=== PATIENT | female | born 1990 | race Caucasian/White ===

== ENCOUNTER 2018-01-16 16:11 | Emergency (ER) | payer BC ==
[2018-01-16] MEDS ORDERED: ORPHENADRINE CITRATE 60 MG/2ML IM ONE (16:39)
[2018-01-16] MEDS ORDERED: KETOROLAC TROMETHAMINE 60 MG/2 ML VIAL IM ONE (16:39)
[2018-01-16 16:45] VITALS: BP 116/76
--- NOTE | 2018-01-16 17:11 | ED Physician Documentation ---
General Adult - HISTORIAN Historian: patient - HPI Stated Complaint: low back pain Chief Complaint: Low Back Pain/ Injury Additional Information: Four days low back pain, worse on right, w/o radiation, numbness, tingling, loss bowel or bladder control. Has painful L shoulder with impingement (?) and is limited to 5# lift with L arm; to have surgery 02/09. Also has HX episodic LBP. Has been takin 800 mg ibuprofen BID, applying heat and Bio freeze but pain still severe at times. - ROS CONST: no problems - PAST HX Past History: other (bipolar ) Allergies/Adverse Reactions: Allergies Allergy/AdvReac Type Severity Reaction Status Date / Time bupropion [From Wellbutrin] Allergy Severe Rash Verified 01/16/18 16:46 duloxetine [From Cymbalta] Allergy Severe Rash Verified 01/16/18 16:46 sertraline [From Zoloft] Allergy Severe Rash Verified 01/16/18 16:46 Home Medications: Ambulatory Orders Medication Instructions Recorded Alprazolam [Xanax] 0.5 mg PO DIRECTED 01/16/18 Divalproex Sodium [Divalproex 250 mg PO D 01/16/18 Sodium ER] HYDROcodone /APAP 5/325 [Flanagan 1 tab PO DIRECTED 01/16/18 5/325] Lamotrigine [Lamictal] 25 mg PO D 01/16/18 - SOCIAL HX Smoking History: non-smoker - FAMILY HX Family History: No - VITAL SIGNS Vital Signs: Vital Signs Temp Pulse Resp BP Pulse Ox 98.3 F 93 H 18 116/76 97 01/16/18 16:12 01/16/18 16:12 01/16/18 16:12 01/16/18 16:12 01/16/18 16:12 - REVIEWED ASSESSMENTS Nursing Assessment Reviewed: Yes Vitals Reviewed: Yes Progress - Progress Progress: 1730, better after toradol and norflex. ED Results Lab/Radiology - Orders Orders: ED Orders Category Date Time Status Ketorolac Tromethamine [Toradol] Med 01/16/18 16:39 Discontinued 60 mg IM NOW ONE Orphenadrine Citrate [Norflex] Med 01/16/18 16:39 Discontinued 60 mg IM NOW ONE General Adult Physical Exam - PHYSICAL EXAM GENERAL APPEARANCE: moderate distress EENT: eye inspection normal, ENT inspection normal NECK: normal inspection, supple RESPIRATORY: no resp distress BACK: normal inspection, other (right trap spasm palpable) SKIN: warm/dry, normal color EXTREMITIES: normal range of motion (gait and stance), no evidence of injury NEURO: CN's nml as tested, motor nml, sensation nml, cognition normal Discharge Clincal Impression: Low back pain Qualifiers: Chronicity: unspecified Back pain laterality: right Sciatica presence: without sciatica Qualified Code(s): M54.5 - Low back pain Referrals: Radha Hightower FNP [Primary Care Provider] - 2 Days Condition: Fair Disposition: 01 HOME, SELF-CARE Decision to Admit: NO Decision Time: 17:30
== END 2018-01-16 17:37 | disposition home or self-care (01) ==
LOC: ED 16:11
DX: M54.5 Low back pain (principal)
CPT/HCPCS: J1885; J2360; 96372

== ENCOUNTER 2018-09-14 06:45 | Emergency (ER) | payer SELFPAY ==
[2018-09-14 07:04] VITALS: BP 129/78
[2018-09-14] MEDS: KETOROLAC TROMETHAMINE 60 MG/2 ML VIAL IM ONE (07:20)
--- NOTE | 2018-09-14 07:20 | ED Physician Documentation ---
Ear Complaints - HISTORIAN Historian: patient - HPI Stated Complaint: R ear pain, CC Chief Complaint: Ear Complaints Timing: still present Location of Pain: R ear Severity: moderate Associated Symptoms: fever, dull pain, aching Further Comments: no - ROS CONST: no problems CVS/RESP: none GI/: denies: nausea, vomiting MS/SKIN/LYMPH: denies: rash NEURO/PSYCH: weakness - PAST HX Past History: frequent ear infections, other (depression) Immunizations: UTD Allergies/Adverse Reactions: Allergies Allergy/AdvReac Type Severity Reaction Status Date / Time bupropion [From Wellbutrin] Allergy Severe Rash Verified 01/16/18 16:46 duloxetine [From Cymbalta] Allergy Severe Rash Verified 01/16/18 16:46 sertraline [From Zoloft] Allergy Severe Rash Verified 01/16/18 16:46 fluoxetine [From Prozac] Allergy Rash Verified 09/14/18 07:04 Sulfa (Sulfonamide Allergy Hives Verified 09/14/18 07:04 Antibiotics) Home Medications: Ambulatory Orders Medication Instructions Recorded Amoxicillin/Potassium Clav 875 each PO BID #20 tablet 09/14/18 [Augmentin 875Mg/125Mg] - SOCIAL HX Smoking History: less than 1 pack/day Alcohol Use: none Drug Use: none - FAMILY HX Family History: No - VITAL SIGNS Vital Signs: Vital Signs Temp Pulse Resp BP Pulse Ox 98.1 F 71 16 129/78 98 09/14/18 06:58 09/14/18 06:58 09/14/18 06:58 09/14/18 06:58 09/14/18 06:58 ED Results Lab/Radiology - Orders Orders: ED Orders Category Date Time Status Ketorolac Tromethamine [Toradol] Med 09/14/18 07:15 Once 60 mg IM NOW ONE Ear Complaint Physical Exam - EXAM General Appearance: alert, mild distress Ear: pain w movement of auricl, erythema, dullness Mouth/Throat: pharynx nml Nose: nml inspection Head/Neck: neck nml inspection Eye: eyes nml inspection, PERRL, pain of sinuses Resp/CVS: breath sounds nml, heart sounds nml, no resp. distress, lungs clear, reg. rate & rhythm Abdomen: non-tender Skin: nml color, no skin rash Neuro/Psych: oriented x3 Discharge Clincal Impression: Acute ear infection Prescriptions: Amoxicillin/Potassium Clav [Augmentin 875Mg/125Mg] 875 each PO BID #20 tablet Referrals: Radha Hightower FNP [Primary Care Provider] - 2 Days Additional Instructions: Take antibiotic as directed until gone Warm compresses to the right ear Alternate Tylenol and Ibuprofen as needed Follow up with PCP as needed Condition: Good Disposition: 01 HOME, SELF-CARE Decision to Admit: NO Decision Time: 07:20
== END 2018-09-14 07:25 | disposition home or self-care (01) ==
LOC: ED 06:45
DX: H66.91 Otitis media, unspecified, right ear (principal); Z72.0 Tobacco use
CPT/HCPCS: 96372; 99283; J1885